=== PATIENT | male | born 1960 | race Asian ===

== ENCOUNTER 2018-04-30 09:33 | Emergency (ER) | payer OTHER ==
[~2018-04-30] VITALS: Ht 175.3 cm; Wt 73.9 kg
[2018-04-30 09:36] VITALS: Ht 175.3 cm; Wt 73.9 kg
[2018-04-30 10:50] VITALS: BP 125/81
== END 2018-04-30 10:50 | disposition home or self-care (01) ==
LOC: ED 09:33
DX: S81.832A Puncture wound without foreign body, left lower leg, initial encounter (principal); W54.0XXA Bitten by dog, initial encounter; Y93.89 Activity, other specified; Y92.89 Other specified places as the place of occurrence of the external cause; Y99.8 Other external cause status
CPT/HCPCS: 90715

== ENCOUNTER 2018-07-30 17:44 | Emergency (ER) | payer OTHER ==
[~2018-07-30] VITALS: Ht 175.3 cm; Wt 75.7 kg
[2018-07-30 18:02] VITALS: Ht 175.3 cm; Wt 75.7 kg
[2018-07-30 21:05] VITALS: BP 109/66
== END 2018-07-30 21:05 | disposition home or self-care (01) ==
LOC: ED 17:44
DX: J32.9 Chronic sinusitis, unspecified (principal); I10 Essential (primary) hypertension; Z98.890 Other specified postprocedural states

== ENCOUNTER → 2019-08-04 | Outpatient (CLI) | payer OTHER ==
[2019-08-04 08:37] LABS: BASOPHIL % 0.3 % (0-2); PLATELET COUNT 198 x10^3mcL (130-400); RED CELL DISTRIBUTION WIDTH 12.6 % (11.5-14.5)
[2019-08-04 09:12] LABS: ALKALINE PHOSPHATASE 81 U/L (46-116); ALT/SGPT 50 U/L (16-63); AST/SGOT 28 U/L (15-37); BILIRUBIN TOTAL 0.7 mg/dL (0.20-1.00); CALCIUM 8.8 mg/dL (8.5-10.1); CHLORIDE SERUM 104 mmol/L (98-107); GFR1 > 60 mL/min; GLUCOSE SERUM 103 mg/dL (74-106); HDL CHOLESTEROL 48 mg/dL (40-60); POTASSIUM SERUM 4.7 mmol/L (3.5-5.1); SODIUM SERUM 138 mmol/L (136-145); TOTAL PROTEIN, SERUM 7.5 g/dL (6.4-8.2); TRIGLYCERIDES 47 mg/dL (<150)
[2019-08-04 09:17] LABS: CHOLESTEROL 116 mg/dL (<200); CHOLESTEROL/HDL RATIO 2.4
== END | disposition home or self-care (01) ==
LOC: LB 08:07
DX: E78.5 Hyperlipidemia, unspecified (principal); Z83.3 Family history of diabetes mellitus; Z95.1 Presence of aortocoronary bypass graft

== ENCOUNTER → 2020-09-11 | Outpatient (CLI) | payer OTHER ==
[2020-09-11 17:30] LABS: BASOPHIL % 0.3 % (0.2-1.5); PLATELET COUNT 197 x10^3mcL (152-348); RED CELL DISTRIBUTION WIDTH 12.6 % (12.1-16.2)
[2020-09-11 17:49] LABS: ALKALINE PHOSPHATASE 88 U/L (46-116); ALT/SGPT 53 U/L (16-63); AST/SGOT 31 U/L (15-37); BILIRUBIN TOTAL 0.8 mg/dL (0.20-1.00); CALCIUM 9.7 mg/dL (8.5-10.1); CARBON DIOXIDE 30.9 mmol/L (21-32); CHLORIDE SERUM 102 mmol/L (98-107); CREATININE SERUM 0.8 mg/dL (0.7-1.3); GFR1 > 60 mL/min; GLUCOSE SERUM 97 mg/dL (74-106); POTASSIUM SERUM 4.3 mmol/L (3.5-5.1); SODIUM SERUM 140 mmol/L (136-145); TOTAL PROTEIN, SERUM 7.6 g/dL (6.4-8.2)
== END | disposition home or self-care (01) ==
LOC: LB 17:05
DX: E78.5 Hyperlipidemia, unspecified (principal); R73.02 Impaired glucose tolerance (oral); Z95.1 Presence of aortocoronary bypass graft

== ENCOUNTER → 2020-09-13 | Outpatient (CLI) | payer OTHER ==
[2020-09-13 07:29] LABS: RED CELL DISTRIBUTION WIDTH 12.7 % (12.1-16.2)
[2020-09-13 07:31] LABS: BASOPHIL % 0.6 % (0.2-1.5); PLATELET COUNT 191 x10^3mcL (152-348)
[2020-09-13 08:04] LABS: ALBUMIN 3.8 g/dL (3.4-5.0); ALKALINE PHOSPHATASE 80 U/L (46-116); ALT/SGPT 52 U/L (16-63); AST/SGOT 29 U/L (15-37); BILIRUBIN TOTAL 0.6 mg/dL (0.20-1.00); CARBON DIOXIDE 30.7 mmol/L (21-32); CHLORIDE SERUM 102 mmol/L (98-107); CREATININE SERUM 0.8 mg/dL (0.7-1.3); GFR1 > 60 mL/min; GLUCOSE SERUM 95 mg/dL (74-106); HDL CHOLESTEROL 46 mg/dL (40-60); POTASSIUM SERUM 4.6 mmol/L (3.5-5.1); SODIUM SERUM 139 mmol/L (136-145); TOTAL PROTEIN, SERUM 7.3 g/dL (6.4-8.2); TRIGLYCERIDES 57 mg/dL (<150)
[2020-09-13 08:08] LABS: CHOLESTEROL 114 mg/dL (<200); CHOLESTEROL/HDL RATIO 2.5
== END | disposition home or self-care (01) ==
LOC: LB 07:07
DX: E78.5 Hyperlipidemia, unspecified (principal); R73.02 Impaired glucose tolerance (oral); Z95.1 Presence of aortocoronary bypass graft